=== PATIENT | female | born 1975 | race Caucasian/White ===

== ENCOUNTER 2020-03-24 11:30 | Emergency (ER) | payer SELFPAY ==
[~2020-03-24] VITALS: Ht 160 cm; Wt 67.6 kg
[2020-03-24 12:07] VITALS: BP 158/105; Ht 160 cm; Wt 67.6 kg
== END 2020-03-24 14:10 | disposition home or self-care (01) ==
LOC: ED 11:30
DX: R10.32 Left lower quadrant pain (principal); E03.9 Hypothyroidism, unspecified; Z87.442 Personal history of urinary calculi
CPT/HCPCS: Q0162

== ENCOUNTER 2020-04-25 10:05 | Emergency (ER) | payer SELFPAY ==
[~2020-04-25] VITALS: Ht 160 cm; Wt 68.9 kg
[2020-04-25 10:11] VITALS: Ht 160 cm; Wt 68.9 kg
[2020-04-25 11:33] LABS: BASOPHIL % 0.9 % (0.2-1.3); PLATELET COUNT 339 x10^3mcL (179-408); RED CELL DISTRIBUTION WIDTH 13.8 % (12.3-17.7)
[2020-04-25 11:43] LABS: CALCIUM 8.4 mg/dL (8.5-10.1); CARBON DIOXIDE 30.5 mmol/L (21-32); CHLORIDE SERUM 103 mmol/L (98-107); CREATININE SERUM 0.7 mg/dL (0.6-1.0); GFR1 > 60 mL/min; GLUCOSE SERUM 102 mg/dL (74-106); POTASSIUM SERUM 3.8 mmol/L (3.5-5.1); SODIUM SERUM 139 mmol/L (136-145)
[2020-04-25 11:44] LABS: LIPASE 55 IU/L (73-393)
[2020-04-25 12:39] LABS: microscopic required? YES; urine erythrocyte TRACE (NEGATIVE)
[2020-04-25 14:16] VITALS: BP 113/86
== END 2020-04-25 14:16 | disposition home or self-care (01) ==
LOC: ED 10:05
PROVIDERS: Emergency Medicine
DX: S22.32XA Fracture of one rib, left side, initial encounter for closed fracture (principal); S01.01XA Laceration without foreign body of scalp, initial encounter; S05.11XA Contusion of eyeball and orbital tissues, right eye, initial encounter; E03.9 Hypothyroidism, unspecified; Z87.442 Personal history of urinary calculi; Z98.890 Other specified postprocedural states; Y93.89 Activity, other specified; Y92.89 Other specified places as the place of occurrence of the external cause; Y99.8 Other external cause status
CPT/HCPCS: 99406; J3010; J7030

== ENCOUNTER 2020-06-03 09:03 | Emergency (ER) | payer SELFPAY ==
[~2020-06-03] VITALS: Ht 160 cm; Wt 72.1 kg
[2020-06-03 09:09] VITALS: BP 166/118; Ht 160 cm; Wt 72.1 kg
== END 2020-06-03 12:15 | disposition left against medical advice (07) ==
LOC: ED 09:03 → EDSEX 09:03 → ED 12:15
DX: S02.85XA Fracture of orbit, unspecified, initial encounter for closed fracture (principal); E03.9 Hypothyroidism, unspecified; Z88.2 Allergy status to sulfonamides; Z88.5 Allergy status to narcotic agent; Z87.442 Personal history of urinary calculi; W21.07XA Struck by softball, initial encounter; Y93.64 Activity, baseball; Y92.89 Other specified places as the place of occurrence of the external cause; Y99.8 Other external cause status